=== PATIENT | female | born 1955 | race Caucasian/White ===

== ENCOUNTER → 2017-04-12 | Outpatient (CLI) | payer OTHER ==
[~2017-04-12] MED LIST: SYNTHROID PO; WELCHOL625 MG PO
--- NOTE | ~2017-04-12 | MY29 ---
[facility] A Service of [facility] RADIOLOGY TEXT RESULTS PATIENT: LUISITO DAVIS LOCATION: [facility] : 53 UNIT #: [id number] AGE: [address]: Jean-Claude Sharma MD SEX: F ORDER DR: [id number] [facility] [address] [place] [address] [place], [place] [address] [id number] O MR#: [id number] Acc #: [id number] NAME: LUISITO DAVIS : 1955 SEX: F STUDY DATE/TIME: 04/12/2017 14:45 UNIT: [facility] ROOM: STUDY DESCRIPTION: MY WON SCREENING W/ CAD BILAT Attending Physician: Jean-Claude Sharma M.D. Ordering Physician: Jean-Claude Sharma M.D. Primary Care Physician: Jean-Claude Sharma M.D. MEDICAL IMAGING REPORT This report is preliminary unless electronic signature is present EXAM Digital screening mammogram 04/12/2017 HISTORY 61-year-old woman, previous augmentation. No risk elevation. Annual screening. FINDINGS Digital imaging of each breast was completed utilizing conventional projections and standard Mirza views. Review includes FDA-approved CAD device. Bilateral retropectoral saline implants are stable. Breast parenchyma is moderately dense bilaterally. Subareolar duct prominence is again noted in each breast. There are no visualized mass characteristics. I see no interval occurring microcalcifications and no suspicious architectural deformity. IMPRESSION Benign mammogram. Stable retropectoral saline implants. Annual screening recommended. BIRADS: 2 Benign Finding. Patients over the age of 40 are entered into a reminder system with target due date for the next mammogram. A result letter will also be sent to the patient. Dictated by... Gaurav Liang M.D. THIS IS AN ELECTRONICALLY VERIFIED REPORT Gaurav Liang M.D. at 04/13/2017 8:10 AM [facility] A Service of [facility] & [facility] RADIOLOGY TEXT RESULTS PATIENT: LUISITO DAVIS [facility] [id number] : 53 UNIT #: [id number] AGE: [address]: Jean-Claude Sharma MD SEX: F ORDER DR: PETRONA/brandan TD: 04/12/2017 22:33 JOB #: [id number] MEDICAL IMAGING REPORT Page 1 of 1 COPY
== END | disposition home or self-care (01) ==
LOC: CWCC 14:30
DX: Z12.31 Encounter for screening mammogram for malignant neoplasm of breast (principal); Z98.82 Breast implant status
CPT/HCPCS: G0202